=== PATIENT | male | born 1990 | race Asian ===

== ENCOUNTER 2016-08-08 06:52 | Emergency (ER) | payer SELFPAY ==
[2016-08-08] MEDS ORDERED: Ibuprofen TAB* 400 MG PO ONE (07:08)
[2016-08-08] MEDS ORDERED: NS 0.9% 1000 ML* 1,000 ML IV ONE (07:08)
[2016-08-08] MEDS ORDERED: Ondansetron INJ* 2 MG/ML VIAL IV ONE (07:14)
--- NOTE | 2016-08-08 07:14 | ED ---
Substance Abuse/Use - HPI Summary HPI Summary: 26 male presents to ED by EMS with complaints of his heart beating fast, nausea and vomiting after drinking 2 bottles of white wine last night 08/07/16. Patient states he has never drank this much before and "feels crappy". He has not taken any medication for his symptoms besides "herbs from [facility] for high blood pressure " unsure of the name. He admits to a headache and feeling like he can't catch his breath/breath when he vomits. Denies fever, chills, chest pain, constipation , diarrhea and upper respiratory symptoms. He just states he has never felt like this before. He says he vomits but it has not helped him. Last vomiting episode was 20 minutes ago and he still feels nauseous. He thinks he has high blood pressure. Difficult history due to slight language barrier. Anxious as he has never had these symptoms before. - History Of Current Complaint Chief Complaint: EDSubstanceAbuse Stated Complaint: ALCOHOL CONSUMPTION Time Seen by Provider: 08/08/16 06:58 Hx Obtained From: Patient Onset/Duration of Drug/ETOH Abuse: Hours Ingestion History: Type/Name Of Drug - alcohol, Amount Ingested - 2 bottles of white wine, Approximate Time Of Ingestion - yesterday evening and night 08/07/16 Overdose Characteristics: Oral Severity Initially: Mild Severity Currently: Mild Aggravating Factor(s): Nothing Alleviating Factor(s): Nothing Associated Signs And Symptoms: Palpitations, Nausea, Vomiting - Allergies/Home Medications Allergies/Adverse Reactions: Allergies Allergy/AdvReac Type Severity Reaction Status Date / Time No Known Allergies Allergy Verified 08/08/16 06:57 PMH/Surg Hx/FS Hx/Imm Hx Cardiovascular History: Reports: Hx Hypertension - ? - Surgical History Surgery Procedure, Year, and Place: none Infectious Disease History: No Infectious Disease History: Denies: Traveled Outside the [place] in Last 30 Days - [place] - Family History Known Family History: Positive: None - Social History Alcohol Use: Rare Smoking Status (MU): Never Smoked Tobacco Review of Systems Constitutional: Negative Eyes: Negative ENT: Negative Positive: Palpitations Positive: Shortness Of Breath - with vomiting Positive: Vomiting, Nausea Musculoskeletal: Negative Skin: Negative Positive: Headache Psychological: Normal All Other Systems Reviewed And Are Negative: Yes Physical Exam Triage Information Reviewed: Yes Vital Signs On Initial Exam: Initial Vitals Temp Pulse Resp BP Pulse Ox 97.5 F 86 16 150/101 96 08/08/16 06:52 08/08/16 06:52 08/08/16 06:52 08/08/16 06:52 08/08/16 06:52 elevated BP noted Vital Signs Reviewed: Yes Appearance: Positive: Well-Appearing, No Pain Distress, Well-Nourished Skin: Positive: Warm, Skin Color Reflects Adequate Perfusion, Dry Head/Face: Positive: Normal Head/Face Inspection Eyes: Positive: Conjunctiva Clear ENT: Positive: Hearing grossly normal, Pharynx normal Dental: Negative: Cervical Lymphadenopathy Neck: Positive: Supple, Nontender Respiratory/Lung Sounds: Positive: Clear to Auscultation, Breath Sounds Present Cardiovascular: Positive: Normal, RRR, Pulses are Symmetrical in both Upper and Lower Extremities Abdomen Description: Positive: Nontender, No Organomegaly, Soft Bowel Sounds: Positive: Present Musculoskeletal: Positive: Normal, Strength/ROM Intact Neurological: Positive: Normal, Sensory/Motor Intact, Alert, Oriented to Person Place, Time, CN Intact II-III Psychiatric: Positive: Normal Diagnostics - Vital Signs Vital Signs Temp Pulse Resp BP Pulse Ox 08/08/16 06:52 97.5 F 86 16 150/101 96 - Laboratory Lab Statement: Any lab studies that have been ordered have been reviewed, and results considered in the medical decision making process. Re-Evaluation - Re-Evaluation First Eval Re-Evaluation Time: 08:25 Change: Improved - Patient was feeling much better after fluids, zofan and ibuprofen Course/Dx - Course Course Of Treatment: Given fluids, ibuprofen and zofran to help with symptoms. appears to be alcohol intoxication/posioning "hangover" and some dehydration due to overconsumption of alcohol and vomiting. - Diagnoses Differential Diagnosis/HQI/PQRI: Positive: Alcohol Abuse, Alcohol Withdrawal, Other - intoxication, withdrawal Provider Diagnoses: Hangover, Alcohol withdrawal, Alcohol intoxication Discharge - Discharge Plan Condition: Stable Disposition: HOME Patient Education Materials: Alcohol Intoxication (ED) Additional Instructions: Drink plenty of water and get plenty of rest. Refrain from over-consumption of alcohol. You may take Tyelnol or Advil as needed for headache. If symptoms worsen such as increased difficulty breathing or chest pain please seek medical attention.
[2016-08-08 08:51] VITALS: BP 118/65
== END 2016-08-08 08:51 | disposition home or self-care (01) ==
LOC: ED 06:52
DX: F10.129 Alcohol abuse with intoxication, unspecified (principal); F10.239 Alcohol dependence with withdrawal, unspecified; R00.2 Palpitations; R11.2 Nausea with vomiting, unspecified; R06.02 Shortness of breath; R51 Headache
CPT/HCPCS: 96374; 99282; A9270-GY; J2405